=== PATIENT | female | born 1975 | race Caucasian/White ===

== ENCOUNTER 2023-04-07 07:35 | Outpatient (OUT) | payer OTHER, SELFPAY ==
--- NOTE | 2023-04-07 07:37 | MM_ITS ---
Patient: GAURI PATIÑO Exam Date: 04/07/2023 : 1975 Gender:F Ordering : DR Zelalem Grant . Admission #: [id number] Family : Order #: [id number] CLICK HERE TO VIEW EXAM RADIOLOGY REPORT PROCEDURE: MM TOMOSYNTHESIS SCREENING BI COMPARISON: MG MAMM SCREEN 3D JULISSA CAD, 04/06/2022. MG MAMM SCREEN 3D JULISSA CAD, 03/25/2021. MG MAMM SCREEN JULISSA W CAD, 09/03/2019. MG MAMM SCREEN JULISSA W CAD, 06/24/2014. INDICATIONS: Screening Calculator Name NCI Breast Cancer Risk Assessment Tool 5 Year Breast Cancer Risk 0.70% Lifetime Breast Cancer Risk 7.40% Personal Breast Cancer No Personal Ovarian Cancer No Treatments None Family Cancers Grandmother-maternal with ovarian cancer at age 32; Grandmother-maternal with colon cancer at age 78; Grandfather-maternal with prostate cancer at age ~60. LOCATION: [facility] BREAST COMPOSITION: Scattered areas fibroglandular density. FINDINGS: DIAGNOSTIC CATEGORY 2--BENIGN FINDING: RIGHT BREAST: No significant suspicious finding. No significant change has occurred. LEFT BREAST: No significant suspicious finding. Scattered benign-appearing calcifications are present. Scattered benign-appearing nodules are present. No significant change has occurred. RECOMMENDATIONS: ROUTINE MAMMOGRAM AND CLINICAL EVALUATION IN 12 MONTHS. PLEASE NOTE: A NORMAL MAMMOGRAM DOES NOT EXCLUDE THE POSSIBILITY OF BREAST CANCER. A CLINICALLY SUSPICIOUS PALPABLE LUMP SHOULD BE BIOPSIED. Dictated by: Darrius Leone M.D. on 04/07/2023 at 12:40 Approved by: Darrius Leone M.D. on 04/07/2023 at 12:43
== END 2023-04-07 07:36 | disposition home or self-care (01) ==
LOC: MAMMO 07:35
PROVIDERS: PCP Family Medicine; Visit Provider Family Medicine
DX: Z12.31 Encounter for screening mammogram for malignant neoplasm of breast (principal); Z80.41 Family history of malignant neoplasm of ovary; Z80.0 Family history of malignant neoplasm of digestive organs; Z80.42 Family history of malignant neoplasm of prostate
CPT/HCPCS: 77063; 77067

== ENCOUNTER 2023-06-27 16:43 | Outpatient (OUT) | payer OTHER, SELFPAY ==
[2023-06-27 16:56] LABS: Basophils Absolute Auto 0.1 10^3/uL (0.0-0.1); Basophils Percent Auto 0.4 % (0.2-2.0); Eosinophils Absolute Auto 0.1 10^3/uL (0.0-0.7); Eosinophils Percent Auto 0.7 % (0.9-7.0); Hematocrit 38.7 % (36.0-48.0); Hemoglobin 12.5 g/dL (12.0-16.0); Immature Granulocytes Abs Auto 0.07 10^3/uL (0.00-0.03); Immature Granulocytes Pct Auto 0.6 % (0.0-0.5); Lymphocytes Absolute Auto 3.3 10^3/uL (1.2-3.8); Lymphocytes Percent Auto 27.6 % (20.5-60.0); Mean Corpuscular HGB Conc 32.3 g/dL (29.9-35.2); Mean Corpuscular Volume 92.8 fL (81.0-99.0); Mean Platelet Volume 9.5 fL (9.5-13.5); Monocytes Absolute Auto 0.6 10^3/uL (0.3-0.8); Monocytes Percent Auto 5.1 % (1.7-12.0); Neutrophils Absolute Auto 7.9 10^3/uL (1.4-6.5); Neutrophils Percent Auto 65.6 % (43.0-75.0); Platelet Count 271 10^3/uL (150-450); Red Blood Count 4.17 10^6/uL (4.20-5.40); White Blood Count 12.1 10^3/uL (4.0-11.0)
[2023-06-27 17:08] LABS: Estimated Average Glucose 189 mg/dL; Glycohemoglobin A1C 8.2 % (4.5-6.2)
[2023-06-27 17:31] LABS: Alanine Aminotransferase 44 U/L (14-59); Albumin Globulin Ratio 0.9; Albumin Level 3.5 g/dL (3.4-5.0); Alkaline Phosphatase 115 U/L (46-116); Anion Gap 10.8; Aspartate Amino Transferase 25 U/L (15-37); BUN Creatinine Ratio 15.9; Bilirubin Direct 0.1 mg/dL (0.0-0.2); Bilirubin Total 0.4 mg/dL (0.2-1.0); Carbon Dioxide 30.2 mmol/L (21.0-32.0); Chloride 99 mmol/L (98-107); Chol HDL Ratio 3.3; Cholesterol 185 mg/dL (<=200); Estimated GFR (African America >60 (>=60); Estimated GFR (Non-African Ame >60 (>=60); Globulin 3.7 g/dL; Glucose 292 mg/dL (74-106); HDL Cholesterol 56 mg/dL (40-60); Sodium 136 mmol/L (136-145); Thyroid Stimulating Hormone 1.066 uIU/mL (0.358-3.740); Total Protein 7.2 g/dL (6.4-8.2); Triglycerides 368 mg/dL (<=150); VLDL CHOLESTEROL 73.6 mg/dL
== END 2023-06-27 16:44 | disposition home or self-care (01) ==
LOC: LAB 16:44
PROVIDERS: PCP Family Medicine; Visit Provider Family Medicine
DX: Z00.00 Encounter for general adult medical examination without abnormal findings (principal)
CPT/HCPCS: 36415; 80048; 80061; 80076; 83036; 84443; 85025